=== PATIENT | female | born 1950 | race Caucasian/White ===

== ENCOUNTER → 2016-07-06 | Outpatient (CLI) | payer OTHER | END | disposition home or self-care (01) | DX: M17.11 Unilateral primary osteoarthritis, right knee (principal); M25.562 Pain in left knee; M25.662 Stiffness of left knee, not elsewhere classified; R26.2 Difficulty in walking, not elsewhere classified; M62.89 Other specified disorders of muscle | CPT/HCPCS: 97110 GP; 97150 GO; 97161 GP; 97165 GO; G8978 GP; G8979 GP; G8980 GP; G8987 GO; G8988 GO; G8989 GO ==

== ENCOUNTER 2016-09-06 05:31 | Inpatient (IN) | payer OTHER ==
[~2016-09-06] VITALS: Ht 152.4 cm; Wt 84.0 kg
[~2016-09-06 05:31] MED LIST: ASPIRIN81 M2 PO; FEOSOL325 MG PO; LISINOPRIL20 MG PO; MOVE FREE JOIN1 EACH PO; MULTIPLE VITAM1 EAC4 PO; SYSTANE 0.3-0.1 EACH BOTH EYES; ZOCOR40 MG PO
[2016-09-06 05:56] VITALS: BP 130/76
[2016-09-06 09:41] LABS: HEMATOCRIT 38.8 % (36.0-46.0); MCH 28.2 PG (29.0-34.0); MCHC 30.9 G/DL (30.0-36.0); MCV 91.3 FL (83-99); MEAN PLAT.VOLUME 10.2 uM^3 (9.5-12.4); PLATELET COUNT 168 K/uL (156-360); RBC DIS.WIDTH-CV 13.2 % (11.8-14.6); RBC DIS.WIDTH-SD 43.9 % (39-53); RED BLOOD COUNT 4.25 M/uL (3.80-5.20); WHITE BLOOD COUNT 5.3 K/uL (4.1-10.2)
[2016-09-06 11:45] VITALS: BP 109/71
[2016-09-06] MEDS ORDERED: FEOSOL325 MG PO (13:38)
[2016-09-06] MEDS ORDERED: CELECOXIB200 MG PO (13:39)
[2016-09-06] MEDS ORDERED: LOVENOX40 MG/0.4 SC (13:39)
[2016-09-06 15:59] VITALS: BP 135/73
[2016-09-06 20:00] VITALS: BP 135/78
[2016-09-07 00:11] VITALS: BP 135/73
[2016-09-07 04:22] VITALS: BP 142/81
[2016-09-07 05:19] LABS: HEMATOCRIT 41.2 % (36.0-46.0); MCV 91.2 FL (83-99)
[2016-09-07 05:43] LABS: ANION GAP 8 MEQ/L (2-14); CHLORIDE 103 MEQ/L (99-109); GFR ESTIMATE (CALCULATED) > 59 mL/min/; GLUCOSE 119 mg/dL (70-99); POTASSIUM 4.4 MEQ/L (3.7-5.4); SAMPLE HEMOLYSIS CHECK 0; SAMPLE ICTERIC CHECK 0; SAMPLE LIPEMIA CHECK 0; SODIUM 135 MEQ/L (136-147); UREA NITROGEN (BUN) 17 mg/dL (9-23)
[2016-09-07 08:07] VITALS: BP 131/68
[2016-09-07 12:09] VITALS: BP 159/72
[2016-09-07 16:00] VITALS: BP 120/66
[2016-09-07 20:12] VITALS: BP 135/68
[2016-09-08 00:05] VITALS: BP 134/67
[2016-09-08 04:00] VITALS: BP 131/69
[2016-09-08 05:26] LABS: HEMATOCRIT 41.9 % (36.0-46.0); MCV 91.9 FL (83-99)
[2016-09-08 08:19] VITALS: BP 117/57
[2016-09-08] MEDS ORDERED: ENDOCET 5-3251 EACH PO (08:24)
[2016-09-08 11:34] VITALS: BP 102/57
== END 2016-09-08 14:44 | DRG 470 ==
LOC: 2SOUTH 05:31 → 3WEST 11:10 → 2SOUTH 13:40 → 3WEST 09-08 14:44
PROVIDERS: Orthopaedic Surgery
PROC: 0SRC0J9 Replacement of Right Knee Joint with Synthetic Substitute, Cemented, Open Approach (ICD-10-PCS; principal; 2016-09-06)
DX: M17.11 Unilateral primary osteoarthritis, right knee (principal); I10 Essential (primary) hypertension; K21.9 Gastro-esophageal reflux disease without esophagitis; K44.9 Diaphragmatic hernia without obstruction or gangrene; E78.5 Hyperlipidemia, unspecified
CPT/HCPCS: 73560; 80048; 84295; 85014; 85018; 85027; 93005; J0690; J1170; J1650; J2175; J2250; J2405; J3010; J7050